=== PATIENT | female | born 1985 | race African-American/Black ===

== ENCOUNTER 2020-09-01 10:38 | Emergency (ER) | payer OTHER, SELFPAY ==
--- NOTE | ~2020-09-01 | US_ITS ---
EXAMINATION: US PELVIS TRANSVAGINAL US PELVIS COMPLETE CLINICAL INFORMATION: Heavy vaginal bleeding. Thickened endometrium status post recent biopsy. COMPARISON: None TECHNIQUE: Both transabdominal and endovaginal scanning was performed. FINDINGS: An anteverted uterus is present measuring 8.6 x 4.7 x 6.5 cm. No uterine masses are seen. The endometrium is a centimeter thick. There is one area within the endometrium which appears of different echogenicity which has the appearance of a long polyp mass in the lower uterine segment. On color flow Doppler imaging, this also appears hypervascular. No fluid is present in the endometrium. Both ovaries appear normal with the right measuring 2.7 x 1.6 x 1.2 cm for a volume of 2.7 mL and the left measuring 2.5 x 1.7 x 2.0 cm for a volume of 4.5 mL. No free fluid is present in the cul-de-sac. US/US pelvic complete IMPRESSION: Question of a hypervascular polyp in the endometrial canal. Hysterosonography may be helpful for further evaluation.
--- NOTE | ~2020-09-01 | US_ITS ---
EXAMINATION: US PELVIS TRANSVAGINAL US PELVIS COMPLETE CLINICAL INFORMATION: Heavy vaginal bleeding. Thickened endometrium status post recent biopsy. COMPARISON: None TECHNIQUE: Both transabdominal and endovaginal scanning was performed. FINDINGS: An anteverted uterus is present measuring 8.6 x 4.7 x 6.5 cm. No uterine masses are seen. The endometrium is a centimeter thick. There is one area within the endometrium which appears of different echogenicity which has the appearance of a long polyp mass in the lower uterine segment. On color flow Doppler imaging, this also appears hypervascular. No fluid is present in the endometrium. Both ovaries appear normal with the right measuring 2.7 x 1.6 x 1.2 cm for a volume of 2.7 mL and the left measuring 2.5 x 1.7 x 2.0 cm for a volume of 4.5 mL. No free fluid is present in the cul-de-sac. US/US transvaginal IMPRESSION: Question of a hypervascular polyp in the endometrial canal. Hysterosonography may be helpful for further evaluation.
[2020-09-01 13:24] VITALS: BP 148/98; PULSE 98; RESP 18; TEMP 37.2; O2SAT 100; BMI 39.9
--- NOTE | 2020-09-01 16:37 | ECG_ITS ---
Test Reason : DIZZYNESS Blood Pressure : / mmHG Vent. Rate : 092 BPM Atrial Rate : 092 BPM P-R Int : 166 ms QRS Dur : 080 ms QT Int : 344 ms P-R-T Axes : 045 020 020 degrees QTc Int : 425 ms Normal sinus rhythm Normal ECG No previous ECGs available Referred By: Latoya Angulo Electronically Signed By:CESILIA SEYMOUR MD
--- NOTE | 2020-09-01 16:40 | ED_ITS ---
HPI - Female Genitourinary General Chief complaint: Vaginal Bleeding Stated complaint: vag bleed Time Seen by Provider: 09/01/20 16:27 Source: patient Mode of arrival: ambulatory History of Present Illness HPI Narrative: 35-year-old female with a past medical history of abnormal vaginal bleeding presenting to the ED complaining heavy bright red vaginal bleeding with clots x3 days with associated fatigue, lightheadedness/dizziness, and lower abdominal cramping. Reports changing pad about every 30 mins - 1 hour. Denies fever, chills, CP/SOB, dysuria/hematuria, vaginal discharge, flank pain. Denies taking anticoagulation Reports previously bled for 6 months, then stopped in April, has been seeing social science professor at [facility] with recent endometrial biopsy and ultrasound on August 13, 2020. Biopsy results were negative. Ultrasound showed normal appearing uterus, thickened endometrium and possible intracavitary mass but view obscured, Normal ovaries, No free fluid. H&H most recently 8.6/29.4. Related Data Allergies Allergy/AdvReac Type Severity Reaction Status Date / Time No Known Allergies Allergy Verified 09/01/20 13:24 Review of Systems Review of Systems: Constitutional: No Fever, No Chills, No Night Sweats, + Fatigue, + Malaise Cardiovascular: No Chest Pain, No SOB Respiratory: No Cough Gastrointestinal: + Nausea, No Vomiting, No Diarrhea, No Constipation, + A bdominal pain Genitourinary: + irregular bleeding, No Dysuria, No Urinary Frequency, No Hematuria, No Flank Pain Skin: No Skin Lesions, No rash Neuro: No Weakness, + Dizziness, No Headache Yes all other systems are reviewed and are negative [facility] Past Medical History Attestation statement: The following information was validated with the patient. Medical History (Updated 09/01/20 @ 17:58 by SUDARSHAN Chau) Irregular bleeding Social History Social History Advance Directives: No Advance Directives Information Provided: No Physical Exam Vital Signs: Vital Signs: Last Vital Signs Temp 98.9 F 09/01/20 13:24 Pulse 98 09/01/20 13:24 Resp 18 09/01/20 13:24 BP 148/98 H 09/01/20 13:24 Pulse Ox 100 09/01/20 13:24 Body Mass Index 39.9 Const: General: cooperative and healthy appearing Orientation/consc iousness: patient oriented x3 Limitations: no limitations HENMT: Head: Yes normal to inspection Ears: hearing grossly normal bilaterally General nose exam: Normal external nose present Face and sinus: Yes normal facial exam Eyes: Other: Mild conjunctival pallor General: appearance normal, both eyes and all related structures EOM: EOMs intact bilaterally Neck: Neck: Yes normal visual inspection Resp: Effort & Inspection: normal respiratory effort Cardio: Rate: regular rate GI: Inspection: Yes normal to inspection Palpation (GI): Soft to palpation, nontender, no guarding and not rigid : Other: No signs of active hemorrhage. Bleeding cleared with giant Q-tips General: Yes no CVA tenderness Speculum Exam - Vagina: vaginal bleeding Speculum Exam - Cervix: Abnormal cervical discharge present (with clots) bloody Bimanual exam- vagina & uterus: normal bimanual exam Bimanual Exam- Adnexa, other: normal adnexae OB/external & speculum: Active bleeding present and vaginal bleeding Back/Spine/Pelvis: Back: no CVA tenderness Skin: Rashes: no rashes Wounds: no wounds Neuro: General: patient oriented x3 Gait exam (Neuro): Normal gait present Extrem: General: Yes normal to inspection Course Course Course Narrative: -1800--ED care transferred to YAEL singh pending labs, UA, and ultrasound. Dispo per results MDM - Female Genitourinary MDM Narrative Medical decision making narrative: 35-year-old female with a past medical history of abnormal vaginal bleeding presenting to the ED complaining heavy bright red vaginal bleeding with clots x3 days with associated fatigue, lightheadedness/dizziness, and lower abdominal cramping. On exam VSS, NAD/well- appearing, abdomen soft/nontender, pelvic exam with notable vaginal bleeding with clots via os. No tenderness. No active hemorrhage. Concern for DUB vs b iopsy complication vs cyst. R/o /ectopic. Lower concern for ovarian torsion, UTI, or renal stone Plan: EKG, labs, UA, pelvic ultrasound Medical Records Attestation: I reviewed the patient's medical records. Lab Data Attestation: I reviewed the patient's lab results. Result diagrams: 09/01/20 17:48 09/01/20 17:48 Discharge Plan Discharge Clinical Impression: Vaginal bleeding
[2020-09-01 17:54] LABS: MANUAL DIFF FLAG NO
[2020-09-01 17:55] LABS: Basophils Percent Auto 0.3 % (0-2); Eosinophils Absolute Auto 0.1 X10*3/uL (0.0-0.4); Eosinophils Percent Auto 1.2 % (0-4); Hematocrit 28.4 % (37-47); Hemoglobin 8.3 g/dl (12.0-16.0); Imm Gran Abs Auto 0.01 X10*3/uL (0.00-0.03); Imm Gran Pct Auto 0.2 % (0.0-0.4); Lymphocytes Absolute Auto 2.1 X10*3/uL (1.2-4.9); Lymphocytes Percent Auto 35.8 % (20-40); Mean Corpuscular HGB Conc 29.2 g/dl (31.0-35.0); Mean Corpuscular Hemoglobin 20.8 pg (27.0-33.0); Mean Platelet Volume 10.1 fL (9.4-12.3); Monocytes Absolute Auto 0.4 X10*3/uL (0.1-1.2); Neutrophils Absolute Auto 3.4 X10*3/uL (2.0-8.3); Neutrophils Percent Auto 56.5 % (45-73); Platelet Count 379 X10*3/uL (160-400); Red Cell Distribution Width 21.2 % (11.0-16.0)
[2020-09-01 18:13] LABS: INTERNATIONAL NORM RATIO 1.2 (0.9-1.1); Prothrombin Time 14.2 SEC (10.8-13.0)
[2020-09-01 18:16] LABS: Alanine Aminotransferase 34 U/L (0-31); Albumin Level 3.7 g/dL (3.5-5.0); Alkaline Phosphatase 65 U/L (39-117); Anion Gap 13 (12-20); Aspartate Amino Transferase 20 U/L (5-31); Bilirubin Direct < 0.2 mg/dL (0.0-0.5); Bilirubin Total 0.2 mg/dL (0.0-1.0); Blood Urea Nitrogen 8 mg/dL (9-16); Calcium 8.5 mg/dL (8.4-10.2); Carbon Dioxide 24 mmol/L (22-29); Chloride 106 mmol/L (96-108); Creatinine Clr Calc Pharmacy 124.6; Estimated Glomerular Filt Rate > 60; Glucose Random 113 mg/dL (60-115); Lipase 20 U/L (8-78); Magnesium 1.8 mg/dL (1.6-2.6); Partial Thromboplastin Time 31.8 SEC (24.1-38.0); Potassium 3.7 mmol/L (3.3-5.1); Sodium 139 mmol/L (135-145); Total Protein 7.4 g/dL (6.5-8.0)
[2020-09-01] MEDS: 0.9 % Sodium Chloride 1,000 ML 999 ML IVCONT (18:54)
[2020-09-01 19:51] VITALS: BP 127/73; PULSE 86; RESP 15; O2SAT 98
[2020-09-01 21:16] LABS: Glucose Urine UA NEG (NEG); Leukocyte Esterase Urine NEG (NEG); Nitrite Urine NEG (NEG); Specific Gravity - Urine >= 1.030 (1.005-1.025); Urine Blood 3+ (NEG); Urine Ketones 5 MG/DL (NEG); Urine Protein NEG (NEG-TRACE)
[2020-09-01 21:21] LABS: Appearance Urine HAZY; Color Urine YELLOW
[2020-09-01 21:43] LABS: UPreg QC Valid YES; Urine Pregnancy NEGATIVE (NEGATIVE)
[2020-09-01 21:47] LABS: WBC Urine 0-2 /HPF (0-4)
[2020-09-01 21:48] LABS: Bacteria Urine TRACE /LPF; Squamous Epithelial Cell Urine TRACE /LPF
== END 2020-09-01 22:07 | disposition home or self-care (01) ==
PROVIDERS: Physician Assistant; Emergency Provider Emergency Medicine
DX: N93.9 Abnormal uterine and vaginal bleeding, unspecified (principal); R10.30 Lower abdominal pain, unspecified; N84.0 Polyp of corpus uteri
CPT/HCPCS: 36415; 76830; 76856; 80048; 80076; 81001; 81025; 83690; 83735; 85025; 85610; 85730; 93005; 96360; 99284